=== PATIENT | male | born 1980 | race Caucasian/White ===

== ENCOUNTER 2017-10-27 17:55 | Emergency (ER) | payer OTHER ==
[~2017-10-27] VITALS: Ht 198.1 cm; Wt 108.9 kg
--- NOTE | 2017-10-27 18:20 | NUR ---
PT BIB [facility] WITH A C/O "FEELING THIRSTY WITH DIFFICULTY SWALLOWING". PT HAS ICE CHIPS AND IS TOLERATING PO WELL. PT IS IN BILATERAL HANDCUFFS.
[2017-10-27 18:27] LABS: WHITE BLOOD COUNT (AUTO) 10.3 K/uL (4.3-11.0)
[2017-10-27 18:28] LABS: BASOPHILS # (AUTO) 0.3 /CMM (0.0-0.2); BASOPHILS % (AUTO) 2.5 % (0.0-2.0); EOSINOPHILS % (AUTO) 0.3 % (0.0-6.0); HEMATOCRIT 45 % (39-51); HEMOGLOBIN 15.9 g/dL (13.5-17.5); LYMPHOCYTES # (AUTO) 1.4 /CMM (0.8-4.8); LYMPHOCYTES % (AUTO) 13.3 % (20.0-44.0); MEAN CORPUSCULAR HEMOGLOBIN 30 PG (26.0-33.0); MEAN CORPUSCULAR HGB CONC 35 g/dl (31.0-36.0); MEAN CORPUSCULAR VOLUME 85 fL (80-96); MONOCYTES # (AUTO) 0.4 /CMM (0.1-1.30); MONOCYTES % (AUTO) 3.8 % (2.0-12.0); NEUTROPHILS # (AUTO) 8.2 /CMM (1.8-8.9); NEUTROPHILS % (AUTO) 80.1 % (43.0-81.0); PLATELET COUNT (AUTO) 292 /CMM (150-450); RDW COEFFICIENT OF VARIATION 12.1 (11.5-15.0)
[2017-10-27] MEDS ORDERED: IV NS 0.9% 1,000 ML BAG IV ONE ×2 (18:30)
[2017-10-27 18:42] LABS: CALCIUM, SERUM 9.7 mg/dL (8.5-10.1); CREATININE 1.4 mg/dL (0.6-1.3); POTASSIUM 4.1 mmol/L (3.5-5.1)
--- NOTE | 2017-10-27 18:49 | NUR ---
PT APPEARS TO BE SLEEPING COMFORTABLY. WILL CONTINUE TO MONITOR THE PT.
--- NOTE | 2017-10-27 19:20 | NUR ---
PO CHALLENGE PASSED. Camilla BARDALES, PAC NOTIFIED.
--- NOTE | 2017-10-27 19:26 | NUR ---
Patient discharged to [facility] in stable condition IN HANDCUFFS. Written and verbal after care instructions given. Patient verbalizes understanding of instruction. PT AMBULATED OUT WITH A SLOW STEADY GAIT. VSS.
--- NOTE | 2017-10-27 19:27 | NUR ---
IV removed. Catheter intact and site benign. Pressure and 4x4 applied to site. No bleeding noted.
[2017-10-27 19:28] VITALS: BP 159/98
== END 2017-10-27 19:29 ==
LOC: ER 17:57
DX: T67.1XXA Heat syncope, initial encounter (principal); E86.0 Dehydration; R42 Dizziness and giddiness; F11.10 Opioid abuse, uncomplicated; F17.210 Nicotine dependence, cigarettes, uncomplicated; J45.909 Unspecified asthma, uncomplicated
CPT/HCPCS: 36415; 80048; 82962; 85025; 93005; 96360; 99285; 99406; A4606; J7030; Z7610